=== PATIENT | male | born 1985 | race Two or more races ===

== ENCOUNTER 2024-03-15 22:47 | Emergency (ER) | payer BC ==
[2024-03-16] MEDS: Indomethacin 25 MG Cap PO ONE (00:12)
[2024-03-16] MEDS: predniSONE 10 MG Tab PO STA (00:15)
== END 2024-03-16 00:17 | disposition home or self-care (01) ==
LOC: MW.ED 22:47
DX: M10.9 Gout, unspecified (principal); Z75.8 Other problems related to medical facilities and other health care
CPT/HCPCS: 99283; A9270